=== PATIENT | female | born 2000 | race African-American/Black ===

== ENCOUNTER 2019-09-13 17:33 | Emergency (ER) | payer OTHER, MEDICAID ==
[~2019-09-13] VITALS: Ht 170.2 cm; Wt 81.7 kg
[2019-09-13] MEDS ORDERED: TYLENOL WITH CO1 TA1 PO (19:18)
[2019-09-13 19:37] VITALS: BP 135/64
[2019-09-13] MEDS ORDERED: LORCET 5-325 M1 EACH PO (20:15)
== END 2019-09-13 19:38 | disposition home or self-care (01) ==
LOC: M.ERS 17:33
DX: S40.212A Abrasion of left shoulder, initial encounter (principal); S50.312A Abrasion of left elbow, initial encounter; W00.0XXA Fall on same level due to ice and snow, initial encounter; Y93.89 Activity, other specified; Y92.89 Other specified places as the place of occurrence of the external cause; Y99.8 Other external cause status